=== PATIENT | female | born 1990 | race Caucasian/White ===

== ENCOUNTER 2018-04-05 08:32 | Emergency (ER) | payer SELFPAY ==
[~2018-04-05] VITALS: Ht 170.2 cm; Wt 83.5 kg
[~2018-04-05 08:32] MED LIST: BENTYL20 MG PO; ZOFRAN4 MG PO
[2018-04-05] MEDS ORDERED: LAMICTAL200 MG PO (09:37)
[2018-04-05] MEDS ORDERED: PAXIL20 MG PO (09:37)
== END 2018-04-05 09:44 | disposition home or self-care (01) ==
LOC: ED 08:32
DX: F32.9 Major depressive disorder, single episode, unspecified (principal); J06.9 Acute upper respiratory infection, unspecified; F17.200 Nicotine dependence, unspecified, uncomplicated; Z88.8 Allergy status to other drugs, medicaments and biological substances
CPT/HCPCS: 99282

== ENCOUNTER 2021-07-16 09:16 | Emergency (ER) | payer OTHER ==
[~2021-07-16] VITALS: Ht 170.2 cm; Wt 79.4 kg
[~2021-07-16 09:16] MED LIST changes: +LAMICTAL200 MG PO; +PAXIL20 MG PO
== END 2021-07-17 13:21 | disposition home or self-care (01) ==
LOC: ED 09:16
DX: U07.1 COVID-19 (principal); F32.A Depression, unspecified; F17.200 Nicotine dependence, unspecified, uncomplicated; Z88.1 Allergy status to other antibiotic agents
CPT/HCPCS: 80048; 81001; 84443; 84703; 85025; 99285; A9270; A9270-GY; C9803; G0480; U0003